=== PATIENT | female | born 1990 | race Caucasian/White ===

== ENCOUNTER 2018-12-16 09:26 | Emergency (ER) | payer OTHER ==
[~2018-12-16] VITALS: Ht 165.1 cm; Wt 90.0 kg
[2018-12-16] MEDS ORDERED: DIPHENHYDRAMINE 50MG CAPSULE PO ONE (10:30)
[2018-12-16] MEDS ORDERED: FAMOTIDINE 20MG TABLET PO ONE (10:30)
[2018-12-16] MEDS ORDERED: DEXAMETHASONE 10 MG/ML VIAL IM ONE (10:30)
[2018-12-16 11:53] VITALS: BP 117/75
== END 2018-12-16 11:53 | disposition home or self-care (01) ==
LOC: ER 09:26
DX: T78.40XA Allergy, unspecified, initial encounter (principal); X58.XXXA Exposure to other specified factors, initial encounter
CPT/HCPCS: 96372; 99283; J1100; Q0163

== ENCOUNTER 2019-02-22 10:30 | Emergency (ER) | payer OTHER ==
[~2019-02-22] VITALS: Ht 165.1 cm; Wt 100.0 kg
[2019-02-22 11:31] VITALS: BP 118/65
== END 2019-02-22 11:32 | disposition home or self-care (01) ==
LOC: ER 10:30
DX: T78.1XXA Other adverse food reactions, not elsewhere classified, initial encounter (principal); L50.9 Urticaria, unspecified; X58.XXXA Exposure to other specified factors, initial encounter
CPT/HCPCS: 99283

== ENCOUNTER 2019-10-23 11:01 | Emergency (ER) | payer MEDICAID, OTHER ==
[~2019-10-23] VITALS: Ht 165.1 cm; Wt 104.0 kg
[2019-10-23] MEDS ORDERED: IBUPROFEN 600MG TABLET PO ONE (12:15)
[2019-10-23 13:19] VITALS: BP 140/72
== END 2019-10-23 13:57 | disposition home or self-care (01) ==
LOC: ER 11:01
DX: M79.662 Pain in left lower leg (principal)
CPT/HCPCS: 73590; 73610; 73630; 81025; 99284

== ENCOUNTER 2023-04-18 13:05 | Emergency (ER) | payer MEDICAID ==
[~2023-04-18] VITALS: Ht 165.1 cm; Wt 100.0 kg
[2023-04-18 13:22] VITALS: O2SAT 96
[2023-04-18 14:22] LABS: ALANINE AMINOTRANSFERASE 273 IU/L (10-49); ASPARTATE AMINOTRANSFERASE 259 IU/L (<34); BASOPHILS % 0.6 % (0.0-2.0); BILIRUBIN TOTAL 0.8 mg/dL (0.1-1.0); CALCIUM 8.5 mg/dL (8.7-10.4); CARBON DIOXIDE 24 mEq/L (21-32); CHLORIDE 104 mEq/L (98-107); CREATININE 0.7 mg/dL (0.6-1.0); EOSINOPHILS % 1.5 % (0.0-5.0); GLUCOSE 155 mg/dL (70-105); HEMATOCRIT. 41.4 % (36.0-48.0); HEMOGLOBIN. 13.6 g/dL (12.0-16.0); LYMPHOCYTES % 13.2 % (20.0-50.0); MEAN CORPUSCULAR HEMOGLOBIN 30.7 pg (28.0-32.0); MEAN CORPUSCULAR HGB CONC 32.9 g/dL (31.0-37.0); MEAN CORPUSCULAR VOLUME 93.2 fL (81.0-99.0); MEAN PLATELET VOLUME 9.4 fl (7.4-10.4); MONOCYTES % 3.9 % (2.0-8.0); NEUTROPHILS % 80.8 % (40.0-76.0); PLATELET 252 x1000/uL (130-400); POTASSIUM 3.5 mEq/L (3.5-5.1); PROTEIN TOTAL 7.9 g/dL (6.0-8.3); RED BLOOD CELL COUNT 4.44 mill/uL (4.2-5.4); RED CELL DISTRIBUTION WIDTH 14.3 % (11.6-14.6); SODIUM 135 mEq/L (136-145); UREA NITROGEN BLOOD 10 mg/dL (9-23); WHITE BLOOD COUNT 11.5 x1000/uL (4.5-11.0)
[2023-04-18 14:34] LABS: HCG SCREEN NEGATIVE
[2023-04-18 20:24] VITALS: BP 138/86; PULSE 60; RESP 16; TEMP 98.6
== END 2023-04-18 20:25 | disposition home or self-care (01) ==
LOC: ER 13:05
DX: M54.2 Cervicalgia (principal); R07.81 Pleurodynia; M79.672 Pain in left foot
CPT/HCPCS: 80053; 84703; 85025; 36415; 71045; 70498; 99285; Z7610 ×2